=== PATIENT | female | born 1980 ===

== ENCOUNTER 2017-01-17 13:04 | Emergency (ER) | payer SELFPAY ==
[2017-01-17 13:09] VITALS: BP 134/66
--- NOTE | 2017-01-17 13:14 | Emergency Department Report ---
Chief Complaint: Vaginal Bleeding Stated Complaint: X12 WKS/BLEEDING Time Seen by Provider: 01/17/17 13:10 - HPI History of Present Illness: PT states she is 12 weeks . pt reports vaginal bleeding since - ROS Review of Systems: + vaginal bleeding + passing small clots - Exam Vital Signs: Vital Signs 01/17/17 01/17/17 13:07 13:08 Temperature 98.3 F 98.2 F Pulse Rate 83 85 Respiratory 18 18 Rate Blood Pressure 134/66 Blood Pressure 134/66 [Right] O2 Sat by Pulse 100 100 Oximetry Physical Exam: pt looks well, non toxic. gcs 15 steady gait MSE screening note: Focused history and physical exam performed. Due to findings the following was ordered: labs, us ED Disposition for MSE Condition: Stable
[2017-01-17 13:43] LABS: Basophils % (Auto) 0.5 % (0.0-1.8); Eosinophils % (Auto) 1.1 % (0.0-4.3); Hematocrit 37.9 % (30.3-42.9); Hemoglobin 12.7 gm/dl (10.1-14.3); Mean Corpuscular HGB Conc 34 % (30-34); Mean Corpuscular Hemoglobin 30 pg (28-32); Mean Corpuscular Volume 90 fl (79-97); Platelet Count 212 K/mm3 (140-440); Red Cell Distribution Width 13.1 % (13.2-15.2); White Blood Count 7.9 K/mm3 (4.5-11.0)
[2017-01-17 14:02] LABS: Alanine Aminotransferase 11 units/L (7-56); Albumin 4.1 g/dL (3.9-5); Albumin/Globulin Ratio 1.4 %; Alkaline Phosphatase 78 units/L (35-129); Anion Gap 18 mmol/L; Blood Urea Nitrogen 8 mg/dL (7-17); Calcium 9.1 mg/dL (8.4-10.2); Carbon Dioxide 24 mmol/L (22-30); Chloride 102.4 mmol/L (98-107); Glucose 71 mg/dL (65-100); Potassium 3.9 mmol/L (3.6-5.0); Sodium 140 mmol/L (137-145); Total Protein 7.1 g/dL (6.3-8.2)
[2017-01-17 15:07] LABS: Bacteria,Urine 1+ /HPF (Negative); Bilirubin,Urine NEG (Negative); Blood,Urine LG (Negative); Ketones,Urine NEG (Negative); Leukocyte Esterase,Urine SM (Negative); Mucus,Urine 1+ /HPF; Nitrite,Urine NEG (Negative); Protein,Urine <15 mg/dL mg/dL (Negative); Urobilinogen,Urine < 2.0 mg/dL (<2.0)
--- NOTE | 2017-01-17 16:18 | Ultrasound Report ---
FINAL REPORT EXAM: US OB \T\lt; = 14 WEEKS FETUS, TRANSABDOMINAL AND ENDOVAGINAL HISTORY: 12 weeks, bleeding TECHNIQUE: Pelvis ultrasound using 2 different techniques: TRANSABDOMINAL and TRANSVAGINAL PRIORS: None. FINDINGS: The uterus is enlarged measuring 10.1 x 4.9 x 7.2 cm. The endometrium contains an irregularly shaped simple fluid collection which may be a misshapen gestational sac. There is no evidence of pole or yolk sac within this possible gestational sac. Gestational sac size is 5.3 x 5.3 x 5.3 cm which corresponds to an estimated gestational age of 11 weeks 1 day. No cul-de-sac or pelvic free fluid. Normal-appearing ovaries with the right measuring 2.8 x 1.7 x 2.9 cm and left measuring 2.0 x 1.9 x 2.2 cm. No solid or cystic ovarian mass. Ovarian blood flow is present bilaterally. IMPRESSION: Nonspecific empty gestational sac corresponds to an estimated gestational age 11 weeks 1 day. This is suggestive of failure with blighted ovum
--- NOTE | 2017-01-17 16:21 | Ultrasound Report ---
FINAL REPORT EXAM: US OB TRANSVAGINAL AND TRANSABDOMINAL HISTORY: 12 weeks, bleeding TECHNIQUE: Pelvis ultrasound using 2 different techniques: TRANSABDOMINAL and TRANSVAGINAL PRIORS: None. FINDINGS: The uterus is enlarged measuring 10.1 x 4.9 x 7.2 cm. The endometrium contains an irregularly shaped simple fluid collection which may be a misshapen gestational sac. There is no evidence of pole or yolk sac within this possible gestational sac. Gestational sac size is 5.3 cm which corresponds to an estimated gestational age of 11 weeks 1 day. No cul-de-sac or pelvic free fluid. Normal-appearing ovaries with the right measuring 2.8 x 1.7 x 2.9 cm and left measuring 2.0 x 1.9 x 2.2 cm. No solid or cystic ovarian mass. Ovarian blood flow is present bilaterally. IMPRESSION: Nonspecific empty gestational sac corresponds to an estimated gestational age 11 weeks 1 day. This is suggestive of failure with blighted ovum
--- NOTE | 2017-01-20 09:40 | ED Elopement Review ---
ED Pt Elopement review - Results review Lab results: Laboratory Tests 01/17/17 01/17/17 01/17/17 13:21 13:21 13:21 WBC 7.9 RBC 4.20 Hgb 12.7 Hct 37.9 MCV 90 MCH 30 MCHC 34 RDW 13.1 L Plt Count 212 Lymph % (Auto) 31.3 [place] % (Auto) 6.8 Eos % (Auto) 1.1 Baso % (Auto) 0.5 Lymph # 2.5 [place] # 0.5 Eos # 0.1 Baso # 0.0 Seg Neutrophils % 60.3 Seg Neutrophils # 4.8 Sodium 140 Potassium 3.9 Chloride 102.4 Carbon Dioxide 24 Anion Gap 18 BUN 8 Creatinine 0.5 L Estimated GFR > 60 BUN/Creatinine Ratio 16.00 Glucose 71 Calcium 9.1 Total Bilirubin 0.30 AST 15 ALT 11 Alkaline Phosphatase 78 Total Protein 7.1 Albumin 4.1 Albumin/Globulin Ratio 1.4 HCG, Quant 83521 H Urine Color Urine Turbidity Urine pH Ur Specific [place] Urine Protein Urine Glucose (UA) Urine Ketones Urine Blood Urine Nitrite Urine Bilirubin Urine Urobilinogen Ur Leukocyte Esterase Urine WBC (Auto) Urine RBC (Auto) U Epithel Cells (Auto) Urine Bacteria (Auto) Urine Mucus Blood Type 01/17/17 01/17/17 13:30 14:55 WBC RBC Hgb Hct MCV MCH MCHC RDW Plt Count Lymph % (Auto) [place] % (Auto) Eos % (Auto) Baso % (Auto) Lymph # [place] # Eos # Baso # Seg Neutrophils % Seg Neutrophils # Sodium Potassium Chloride Carbon Dioxide Anion Gap BUN Creatinine Estimated GFR BUN/Creatinine Ratio Glucose Calcium Total Bilirubin AST ALT Alkaline Phosphatase Total Protein Albumin Albumin/Globulin Ratio HCG, Quant Urine Color Yellow Urine Turbidity Clear Urine pH 7.0 Ur Specific [place] 1.017 Urine Protein <15 mg/dl Urine Glucose (UA) Neg Urine Ketones Neg Urine Blood Lg Urine Nitrite Neg Urine Bilirubin Neg Urine Urobilinogen < 2.0 Ur Leukocyte Esterase Sm Urine WBC (Auto) 16.0 H Urine RBC (Auto) 161.0 U Epithel Cells (Auto) 2.0 Urine Bacteria (Auto) 1+ Urine Mucus 1+ Blood Type O POSITIVE - Call Back decision Pt Call Back Decision: Pt to F/U with PMD ([facility])
== END 2017-01-17 17:47 | disposition left against medical advice (07) ==
LOC: ED 13:04
DX: O46.91 Antepartum hemorrhage, unspecified, first trimester (principal); Z3A.12 12 weeks gestation of pregnancy; Z53.21 Procedure and treatment not carried out due to patient leaving prior to being seen by health care provider
CPT/HCPCS: 36415; 76801; 76817; 80053; 81001; 84702; 85025; 86900; 86901